=== PATIENT | female | born 1990 | race Asian ===

== ENCOUNTER → 2019-03-08 | Outpatient (CLI) | payer OTHER | LOC: M LAB 10:28 | PROVIDERS: ATTEND Family Medicine Adult Medicine | DX: R76.11 Nonspecific reaction to tuberculin skin test without active tuberculosis (principal); R93.89 Abnormal findings on diagnostic imaging of other specified body structures ==

== ENCOUNTER → 2019-03-09 | Outpatient (CLI) | payer OTHER ==
[~2019-03-09] MED LIST: ISOVUE-370 76% 100ML VIAL (Q9967) As Ordered ONE
--- NOTE | 2019-03-10 09:48 | REP ---
CT chest with IV contrast: History: Abnormal chest x-ray. Positive PPD. Comparison chest x-ray [facility] dated March 02, 2019 which was read as showing subtle suprahilar fullness on the left. CT contrast dose: 75 ml of intravenous Isovue 370. CT findings: Digital preliminary licensed psychiatric technician radiograph is unremarkable. There is no evidence of hilar or mediastinal mass or adenopathy. No pleural or pericardial effusion is seen. No adrenal lesion is observed. The visualized upper abdominal structures are unremarkable. There is good opacification of the pulmonary arterial tree and no filling defect is seen. The thoracic aorta is intact. No evidence of aneurysm or dissection. Incidental note is made of an anatomic variant in that the left vertebral artery takes a direct aortic origin. This is of no clinical significance. The lung [place] are clear. There is minimal linear fibrosis versus discoid atelectasis in the left lower lobe. No pulmonary nodule, cavity, or mass lesion is observed. No bony abnormality is seen. Impression: Minimal linear fibrosis versus plate-like atelectasis left lower lobe. Otherwise negative CT chest with IV contrast. No active disease. Electronically Signed by Simone Ortiz MD 03/10/2019 02:08 P
== END ==
LOC: M RAD 17:54
PROVIDERS: ATTEND Family Medicine Adult Medicine
DX: R76.11 Nonspecific reaction to tuberculin skin test without active tuberculosis (principal); R93.89 Abnormal findings on diagnostic imaging of other specified body structures
CPT/HCPCS: 71260; 87116; 87206; Q9967

== ENCOUNTER → 2019-03-10 | Outpatient (REF) | payer OTHER | LOC: M LAB REF 10:39 | PROVIDERS: ATTEND Family Medicine Adult Medicine | DX: R76.11 Nonspecific reaction to tuberculin skin test without active tuberculosis (principal) ==

== ENCOUNTER → 2019-03-13 | Outpatient (REF) | payer OTHER | LOC: M LAB REF 12:01 | PROVIDERS: ATTEND Family Medicine Adult Medicine | DX: R82.71 Bacteriuria (principal) ==

== ENCOUNTER → 2019-03-24 | Outpatient (REF) | payer OTHER | LOC: M LAB REF 12:08 | PROVIDERS: ATTEND Family Medicine Adult Medicine | DX: R76.11 Nonspecific reaction to tuberculin skin test without active tuberculosis (principal) ==

== ENCOUNTER → 2020-08-26 | Outpatient (REF) | payer OTHER ==
[2020-08-26 16:00] LABS: FREE T4 0.95 NG/DL (0.76-1.46); THYROID STIMULATING HORMONE 1.09 uIU/ML (0.358-3.740)
[2020-08-26 16:02] LABS: LUTEINIZING HORMONE 4.8 mIU/mL; PROGESTERONE 2.09 NG/ML; PROLACTIN 9.3 NG/ML
[2020-08-26 16:03] LABS: FOLLICLE STIMULATING HORMONE 4.9 mIU/mL
== END ==
LOC: M PLALAB 13:13
PROVIDERS: ATTEND Specialist
DX: N92.6 Irregular menstruation, unspecified (principal)